=== PATIENT | female | born 1975 | race Caucasian/White ===

== ENCOUNTER → 2017-04-26 | Outpatient (CLI) | payer MEDICARE ==
[~2017-04-26] MED LIST: GABA-587 PO; GADOBUTROL 7.5 MMOL/7.5 ML VIAL IV ONE; HYDR-963 PO; LAMO100T5 PO; MORP15TA80 PO; NITR100C62 PO
--- NOTE | 2017-04-26 16:58 | KCIC ---
MRI Brain with and without contrast History: Idiopathic epilepsy, new daily seizures for 6 month Technique: Multiplanar, multi sequential pre and postcontrast MR imaging was performed of the brain. Contrast: 6 cc Gadavist Comparison: None Findings: There is mild motion. There is no evidence of recent infarct or cytotoxic edema. The ventricles, sulci, and cisterns are within normal limits in size and configuration. There is no significant midline shift, intraaxial mass effect, or focal abnormal extra-axial fluid collection. There is no significant signal abnormality including hemosiderin deposition of the brain parenchyma. There is no nodular parenchymal or leptomeningeal enhancement. There is preservation of the major intracranial flow-voids at the skull base. The cerebellar tonsils are normal in location. There is no significant abnormality of the pineal gland or pituitary gland. There is patchy moderate to severe ethmoid air cell mucosal thickening. There is [id number] bilateral maxillary sinus mucosal thickening. Frontal sinus is not pneumatized. The mastoid air cells are aerated. There is preserved marrow signal of the clivus. Hippocampal formations are symmetric in size and signal characteristics. No significant paz matter heterotopia or cortical dysplasia is identified. Impression: 1. There is no significant intracranial abnormality. 2. There is paranasal sinus mucosal thickening as stated. Electronically signed by: Tim Fraga MD (04/26/2017 4:55 PM)
== END | disposition home or self-care (01) ==
LOC: KCIC MRI 15:25 → EDBD 15:30
PROVIDERS: ATTEND Psychiatry & Neurology Neurology with Special Qualifications in Child Neurology
DX: G40.309 Generalized idiopathic epilepsy and epileptic syndromes, not intractable, without status epilepticus (principal)
CPT/HCPCS: 70553; 82565; A9585